=== PATIENT | female | born 1950 | race African-American/Black ===

== ENCOUNTER 2016-04-12 06:28 | Inpatient (IN) | payer BC, OTHER ==
--- NOTE | 2016-04-12 07:53 | PDOC ---
History of Present Illness <Kaycee Nur - Last Filed: 04/12/16 13:48> - History of Present Illness Initial Comments: 04/12/16 11:56 Patient is a 65 year old female with a significant past medical history of CHF, HTN, HLD, DM, stent placement x1, and hypothyroidism, nephrolithiasis who presents to the ED for right lower back pain that began suddenly yesterday while she was standing up cooking. Patient describes the pain as sharp, nonradiating a and constant with a severity of 8. Patient does admit to having a chronic history of back pain but has never followed up with a specialist because she states the pain went away. She denies chest pain, shortness of breath, palpitations She denies abdominal pain, nausea, vomiting, diarrhea She denies dizziness, headaches, acute visual changes PMHx: CHF, HTN, HLD, DM, stent placement x1, and hypothyroidism, nephrolithiasis PSHx:None Meds: Refer to ambulatory Allergies: NKDA Social: Smokes 3-4 black and mild a day. Denies alcohol and drug use PCP: Dr. Nestor Chang <Ibis Victoria - Last Filed: 04/12/16 14:12> - General Chief Complaint: Back Pain Stated Complaint: BACK PAIN Time Seen by Provider: 04/12/16 07:31 Past History <Kaycee Nur - Last Filed: 04/12/16 13:48> - Past Medical History Anemia: No Asthma: No Cancer: No Cardiac Disorders: Yes CVA: No COPD: No CHF: Yes (NO MEDS) Dementia: No Diabetes: Yes GI Disorders: Yes Disorders: Yes (KIDNEY STONES) HTN: Yes Hypercholesterolemia: Yes Liver Disease: No Seizures: No Thyroid Disease: Yes - Surgical History Abdominal Surgery: Yes (HERNIA SX A BABY) Appendectomy: No Cardiac Surgery: Yes (Multiple stents) Cholecystectomy: No Lung Surgery: No Neurologic Surgery: No Orthopedic Surgery: No - Immunization History Immunization Up to Date: Yes - Psycho/Social/Smoking Cessation Hx Anxiety: No Suicidal Ideation: No Smoking History: Current some day smoker Have you smoked in the past 12 months: No Number of Cigarettes Smoked Daily: 0 If you are a former smoker, when did you quit?: 5 Cigars Per Day: 5 Information on smoking cessation initiated: No Hx Alcohol Use: No Drug/Substance Use Hx: No Substance Use Type: None Hx Substance Use Treatment: No <Ibis Victoria - Last Filed: 04/12/16 14:12> - Past Medical History Allergies/Adverse Reactions: Allergies Allergy/AdvReac Type Severity Reaction Status Date / Time No Known Drug Allergies Allergy Verified 04/12/16 06:45 Home Medications: Ambulatory Orders Albuterol Sulfate Inhaler - [Ventolin HFA Inhaler -] 2 inh PO Q6H PRN 12/21/14 Amlodipine Besylate [Norvasc -] 5 mg PO DAILY 12/21/14 Atorvastatin Ca [Lipitor] 20 mg PO DAILY 12/21/14 Clopidogrel Bisulfate [Plavix -] 75 mg PO DAILY 12/21/14 Hydrochlorothiazide [Hctz -] 25 mg PO DAILY 12/21/14 Insulin Glargine,Hum.rec.anlog [Lantus Solostar PEN -] 50 units SQ HS 12/21/14 Levothyroxine [Synthroid -] 112 mcg PO DAILY 12/21/14 Ranolazine [Ranexa] 500 mg PO BID 12/21/14 Cyclobenzaprine HCl [Flexeril -] 10 mg PO TID PRN #21 tablet 09/08/15 Insulin Lispro [Humalog] 100 unit SQ ASDIR 04/12/16 Losartan Potassium [Cozaar] 100 mg PO DAILY 04/12/16 Review of Systems - Review of Systems Constitutional: No: Chills, Diaphoresis, Fever, Loss of Appetite HEENTM: No: Tearing, Ear Pain, Nose Pain, Throat Pain, Throat Swelling, Difficulty Swallowing Respiratory: Yes: Cough (chronic due to COPD). No: Shortness of Breath, SOB with Exertion Cardiac (ROS): No: Chest Pain, Edema, Lightheadedness, Palpitations ABD/GI: No: Nausea, Vomiting : No: Burning, Dysuria Musculoskeletal: Yes: Back Pain (right lower ). No: Muscle Weakness, Neck Pain Integumentary: No: Dryness, Erythema Neurological: No: Headache, Numbness, Paresthesia, Tremors, Weakness Psychiatric: No: Anxiety, Depression Endocrine: No: Intolerance to Cold, Intolerance to Heat Hematologic/Lymphatic: No: Anemia, Blood Clots <Ibis Victoria - Last Filed: 04/12/16 14:12> *Physical Exam - Vital Signs Last Vital Signs Temp Pulse Resp BP Pulse Ox 97.8 F 80 22 180/80 97 04/12/16 06:49 04/12/16 06:49 04/12/16 06:49 04/12/16 06:49 04/12/16 06:49 <Kaycee Nur - Last Filed: 04/12/16 13:48> - Vital Signs Last Vital Signs Temp Pulse Resp BP Pulse Ox 97.8 F 80 22 180/80 97 04/12/16 06:49 04/12/16 06:49 04/12/16 06:49 04/12/16 06:49 04/12/16 06:49 - Physical Exam General Appearance: Yes: Other (Awake, alert, oriented and in mild painful distress ) HEENT: positive: EOMI, VIGNESH, Normal ENT Inspection, TMs Normal, Pharynx Normal. negative: Tonsillar Exudate, Tonsillar Erythema, Rhinorrhea, Sinus Tenderness Neck: positive: Trachea midline Respiratory/Chest: positive: Lungs Clear, Normal Breath Sounds. negative: Decreased Breath Sounds, Wheezing Cardiovascular: positive: Regular Rhythm, Regular Rate Gastrointestinal/Abdominal: positive: Normal Bowel Sounds, Soft. negative: Distended, Rebound, Tenderness Musculoskeletal: positive: Normal Inspection, CVA Tenderness (R). negative: CVA Tenderness (L) Extremity: positive: Other (limited range of motion due to right back pain ) Integumentary: positive: Normal Color, Dry, Warm Neurologic: positive: Fully Oriented, Alert, Normal Mood/Affect, Normal Response , Motor Strength 5/5 <Ibis Victoria - Last Filed: 04/12/16 14:12> Heart Score/ECG Review - ECG Intrepretation Comment:: 04/12/16 11:27 ECG obtained at 11:11 Normal sinus at 69 bpm, incomplete right bundle branch block, borderline ECG <Kaycee Nur - Last Filed: 04/12/16 13:48> ED Treatment Course - LABORATORY CBC & Chemistry Diagram: 04/12/16 08:00 04/12/16 09:00 - ADDITIONAL ORDERS Additional order review: Laboratory Results 04/12/16 04/12/16 04/12/16 09:00 08:00 08:00 Sodium 141 Cancelled Potassium 3.8 Cancelled Chloride 108 H Cancelled Carbon Dioxide 27 Cancelled Anion Gap 6 L Cancelled BUN 11 Cancelled Creatinine 0.7 Cancelled Creat Clearance w eGFR > 60 Cancelled Random Glucose 131 H D Cancelled Calcium 9.7 Cancelled Total Bilirubin 0.5 D Cancelled AST 8 L D Cancelled ALT 18 Cancelled Alkaline Phosphatase 114 Cancelled Total Protein 7.2 Cancelled Albumin 3.5 Cancelled Urine Color Lt. yellow Urine Appearance Clear Urine pH 6.5 Ur Specific [place] <= 1.005 Urine Protein Negative Urine Glucose (UA) Negative Urine Ketones Negative Urine Blood Negative Urine Nitrite Negative Urine Bilirubin Negative Urine Urobilinogen 0.2 e.u/dl Ur Leukocyte Esterase Negative 04/12/16 08:00 RBC 5.01 MCV 93.1 MCHC 32.9 RDW 13.9 MPV 11.1 Neutrophils % 66.4 Lymphocytes % 22.8 D Monocytes % 7.4 Eosinophils % 2.1 D Basophils % 1.3 - RADIOLOGY Radiograph Interpretation: 04/12/16 13:49 Renal ultrasound as reviewed by Dr. Bain reports findings suspicious for non obstructing renal stones bilaterally. - Medications Given in the ED: ED Medications Discontinued Medications Generic Name Dose Route Start Last Admin Trade Name Reguloq PRN Reason Stop Dose Admin Diazepam 2 mg 04/12/16 08:02 04/12/16 08:03 Valium - PO 04/12/16 08:03 2 mg ONCE ONE Administration Ketorolac Tromethamine 10 mg 04/12/16 09:05 04/12/16 09:10 Toradol PO 04/12/16 09:06 10 mg ONCE ONE Administration Lorazepam 1 mg 04/12/16 08:00 04/12/16 08:03 Ativan - PO 04/12/16 08:01 1 mg ONCE ONE Administration Morphine Sulfate 15 mg 04/12/16 08:01 04/12/16 08:03 Ms Contin - PO 04/12/16 08:02 15 mg ONCE ONE Administration <Kaycee Nur - Last Filed: 04/12/16 13:48> - LABORATORY CBC & Chemistry Diagram: 04/12/16 08:00 04/12/16 09:00 <Ibis Victoria - Last Filed: 04/12/16 14:12> Medical Decision Making - Medical Decision Making 04/12/16 10:21 Microblog sent to [facility] for admission at 10:00, but instructed to call Phill. Phone call sent to Dr. Pollock at 10:05. Awaiting call back. 04/12/16 10:39 Second page sent to Dr. Pollock. 04/12/16 10:51 Dr. Pollock called back, patient accepted and admitted. <Kaycee Nur - Last Filed: 04/12/16 13:48> - Medical Decision Making 04/12/16 08:00 Patient is a 65 year old female who presents to the ED complaining of intractable right lower back pain that began yesterday suddenly yesterday while she was cooking. Differential Diagnosis include but not limited to nephrolithiasis, pyelonephritis, contusion, fracture, sprain. ED Course and Treatment: -CBC -CMP -U/A -Cardiac profile -MS Contin 15mg po -Valium 2mg 04/12/16 09:00 -CBC and CMP wnl -U/A negative -Toradol given for pain 04/12/16 10:00 -Patient continues to experience intractable back pain -Patient admitted to Dr. Pollock's services <Ibis Victoria - Last Filed: 04/12/16 14:12> *DC/Admit/Observation/Transfer - Attestations Scribe Attestion: 04/12/16 10:32 Documentation prepared by Kaycee Nur, acting as medical office assistant for Ibis Victoria MD/DO. <Kaycee Nur - Last Filed: 04/12/16 13:48> <Ibis Victoria - Last Filed: 04/12/16 14:12> Diagnosis at time of Disposition: Low back strain, Intractable pain - Referrals
--- NOTE | 2016-04-12 07:59 | PDOC ---
Attending Attestation - Resident Resident Name: Ibis Victoria - ED Attending Attestation I have performed the following: I have examined & evaluated the patient, The case was reviewed & discussed with the resident, I agree w/resident's findings & plan, Exceptions are as noted - HPI HPI: 04/12/16 07:56 The patient is a 65 year old female with chronic, intermittent low back pain who presents with right lower back pain that began yesterday after standing for a long perior of time when cooking. She denies new lower extremity weakness or paresthesias. No new bladder or bowel incontinence. No rash. No fever. No urinary symptoms. - Physicial Exam PE: 04/12/16 07:57 Vitals noted No lower extremity weakness or paresthesias Normoreflexic in the bilateral lower extremities She has right lower lumbar paraspinal muscle tenderness - Medical Decision Making 04/12/16 07:58 Will obtain labs, UA 04/12/16 09:48 The patient continues to be in severe pain She states that she is unable to transfer from the stretcher to a chair, or to standing Will place on observation for further evaluation and treatment of her intractable back pain Will obtain ultrasound to rule out hydronephrosis Clinical impression: Intractable back pain Case discussed in detail with admitting provider including history, physical exam and ancillary studies. Admitting physician has assumed care for the patient, will follow all pending diagnostics and will complete the evaluation and treatment. Discharge Disposition - Diagnosis Low back strain, Intractable pain - Discharge Dispostion Last Admission D/C Date: 04/30/04 Admit: Yes
[2016-04-12] MEDS ORDERED: LORazepam 1 MG TABLET PO ONE (08:00)
[2016-04-12] MEDS ORDERED: morphine SO4 SUSTAINED ACTING 15 MG TABLET.SA PO ONE (08:01)
[2016-04-12] MEDS ORDERED: diazePAM 2 MG TABLET PO ONE (08:02)
[2016-04-12] MEDS ORDERED: morphine SO4 SUSTAINED ACTING 15 MG TABLET.SA ONE (08:05)
[2016-04-12] MEDS ORDERED: diazePAM 2 MG TABLET ONE (08:05)
[2016-04-12 08:25] LABS: BASOPHIL 1.3 % (0-2.0); EOSINOPHIL 2.1 % (0-4.5); MCH 30.6 pg (25.7-33.7); MCHC 32.9 g/dl (32.0-36.0); MEAN CELL VOLUME 93.1 fl (80-96); MEAN PLT VOLUME 11.1 fl (7.5-11.1); NEUTROPHILS 66.4 % (42.8-82.8); PLATELET COUNT 263 K/MM3 (134-434); RDW 13.9 % (11.6-15.6); WHITE BLOOD COUNT 11.8 K/mm3 (4.0-10.0)
[2016-04-12 08:26] LABS: PH,URINE 6.5 (5.0-8.0); URINE APPEARANCE CLEAR; URINE BILIRUBIN NEGATIVE (NEGATIVE); URINE BLOOD NEGATIVE (NEGATIVE); URINE COLOR LT. YELLOW; URINE GLUCOSE (UA) NEGATIVE (NEGATIVE); URINE KETONE NEGATIVE (NEGATIVE); URINE LEUK ESTERASE NEGATIVE (NEGATIVE); URINE NITRITE NEGATIVE (NEGATIVE); URINE PROTEIN NEGATIVE (NEGATIVE); URINE UROBILINOGEN 0.2 E.U/dl E.U./dl (0.2-1.0)
[2016-04-12] MEDS ORDERED: KETOROLAC TROMETHAMINE 10 MG TABLET PO ONE (09:05)
[2016-04-12] MEDS ORDERED: KETOROLAC TROMETHAMINE 30 MG/1 ML VIAL ONE (09:12)
[2016-04-12 09:38] LABS: ALBUMIN 3.5 g/dl (3.4-5.0); ALK PHOS 114 U/L (45-117); ANION GAP 6 (8-16); BILIRUBIN,TOTAL 0.5 mg/dL (0.2-1.0); CALCIUM 9.7 mg/dL (8.5-10.1); CO2 27 mmol/L (21-32); CREATININE 0.7 mg/dL (0.55-1.02); GLUCOSE,RANDOM 131 mg/dL (74-106); SGOT/AST 8 U/L (15-37); SGPT/ALT 18 U/L (12-78); TOT PROT 7.2 g/dl (6.4-8.2)
[2016-04-12] MEDS ORDERED: ONDANSETRON 4 MG/2 ML VIAL IVPB ONE (12:24)
--- NOTE | 2016-04-12 16:35 | EKG ---
Test Reason : Blood Pressure : / mmHG Vent. Rate : 069 BPM Atrial Rate : 069 BPM P-R Int : 166 ms QRS Dur : 092 ms QT Int : 418 ms P-R-T Axes : 000 -06 036 degrees QTc Int : 447 ms POOR DATA QUALITY, INTERPRETATION MAY BE ADVERSELY AFFECTED NORMAL SINUS RHYTHM INCOMPLETE RIGHT BUNDLE BRANCH BLOCK BORDERLINE ECG WHEN COMPARED WITH ECG OF 19-OCT-2015 05:18, NO SIGNIFICANT CHANGE WAS FOUND Confirmed by ANGELA DEGROOT, BECK ([id number]) on 04/12/2016 4:34:59 PM Referred By: Confirmed By:BECK MILLER MD
--- NOTE | 2016-04-12 16:52 | HP ---
Admitting History and Physical - Primary Care Physician PCP: Randa Pollock - Admission Chief Complaint: back pain History of Present Illness: Patient is a 65 year old female with a significant past medical history of CHF, HTN, HLD, DM, stent placement x1, and hypothyroidism, nephrolithiasis who presents to the ED for right lower back pain that began suddenly yesterday while she was standing up cooking. Patient describes the pain as sharp, nonradiating a and constant with a severity of 8. Patient does admit to having a chronic history of back pain but has never followed up with a specialist because she states the pain went away. - Past Medical History Cardiovascular: Yes: HTN, Hyperlipdemia Pulmonary: Yes: Asthma Endocrine: Yes: Diabetes Mellitus - Smoking History Smoking history: Current some day smoker Have you smoked in the past 12 months: No Aproximately how many cigarettes per day: 0 If you are a former smoker, when did you quit?: 5 - Alcohol/Substance Use Hx Alcohol Use: No Home Medications - Allergies Allergies/Adverse Reactions: Allergies Allergy/AdvReac Type Severity Reaction Status Date / Time No Known Drug Allergies Allergy Verified 04/12/16 06:45 - Home Medications Home Medications: Ambulatory Orders Albuterol Sulfate Inhaler - [Ventolin HFA Inhaler -] 2 inh PO Q6H PRN 12/21/14 Amlodipine Besylate [Norvasc -] 5 mg PO DAILY 12/21/14 Atorvastatin Ca [Lipitor] 20 mg PO DAILY 12/21/14 Clopidogrel Bisulfate [Plavix -] 75 mg PO DAILY 12/21/14 Hydrochlorothiazide [Hctz -] 25 mg PO DAILY 12/21/14 Insulin Glargine,Hum.rec.anlog [Lantus Solostar PEN -] 50 units SQ HS 12/21/14 Levothyroxine [Synthroid -] 112 mcg PO DAILY 12/21/14 Ranolazine [Ranexa] 500 mg PO BID 12/21/14 Cyclobenzaprine HCl [Flexeril -] 10 mg PO TID PRN #21 tablet 09/08/15 Insulin Lispro [Humalog] 100 unit SQ ASDIR 04/12/16 Losartan Potassium [Cozaar] 100 mg PO DAILY 04/12/16 Physical Examination Vital Signs: Vital Signs Temperature 97.8 F 04/12/16 06:49 Pulse Rate 65 04/12/16 12:38 Respiratory Rate 18 04/12/16 12:38 Blood Pressure 107/58 04/12/16 12:38 O2 Sat by Pulse Oximetry (%) 94 L 04/12/16 12:38 Constitutional: Yes: No Distress HENT: Yes: Atraumatic Neck: Yes: Supple Cardiovascular: Yes: Regular Rate and Rhythm Respiratory: Yes: CTA Bilaterally Gastrointestinal: Yes: Normal Bowel Sounds Extremities: Yes: WNL Neurological: Yes: Alert, Oriented Problem List - Problems (1) Intractable pain Code(s): R52 - PAIN, UNSPECIFIED (2) High blood pressure Code(s): I10 - ESSENTIAL (PRIMARY) HYPERTENSION (3) Diabetes Code(s): E11.9 - TYPE 2 DIABETES MELLITUS WITHOUT COMPLICATIONS (4) Hyperlipidemia Code(s): E78.5 - HYPERLIPIDEMIA, UNSPECIFIED Assessment/Plan Laboratory Tests 04/12/16 04/12/16 04/12/16 08:00 08:00 08:00 WBC 11.8 H RBC 5.01 Hgb 15.3 Hct 46.6 H MCV 93.1 MCHC 32.9 RDW 13.9 Plt Count 263 D MPV 11.1 Neutrophils % 66.4 Lymphocytes % 22.8 D Monocytes % 7.4 Eosinophils % 2.1 D Basophils % 1.3 Sodium Cancelled Potassium Cancelled Chloride Cancelled Carbon Dioxide Cancelled Anion Gap Cancelled BUN Cancelled Creatinine Cancelled Creat Clearance w eGFR Cancelled POC Glucometer Random Glucose Cancelled Calcium Cancelled Total Bilirubin Cancelled AST Cancelled ALT Cancelled Alkaline Phosphatase Cancelled Total Protein Cancelled Albumin Cancelled Urine Color Lt. yellow Urine Appearance Clear Urine pH 6.5 Ur Specific [place] <= 1.005 Urine Protein Negative Urine Glucose (UA) Negative Urine Ketones Negative Urine Blood Negative Urine Nitrite Negative Urine Bilirubin Negative Urine Urobilinogen 0.2 e.u/dl Ur Leukocyte Esterase Negative 04/12/16 04/12/16 09:00 12:34 WBC RBC Hgb Hct MCV MCHC RDW Plt Count MPV Neutrophils % Lymphocytes % Monocytes % Eosinophils % Basophils % Sodium 141 Potassium 3.8 Chloride 108 H Carbon Dioxide 27 Anion Gap 6 L BUN 11 Creatinine 0.7 Creat Clearance w eGFR > 60 POC Glucometer [phone] Random Glucose 131 H D Calcium 9.7 Total Bilirubin 0.5 D AST 8 L D ALT 18 Alkaline Phosphatase 114 Total Protein 7.2 Albumin 3.5 Urine Color Urine Appearance Urine pH Ur Specific [place] Urine Protein Urine Glucose (UA) Urine Ketones Urine Blood Urine Nitrite Urine Bilirubin Urine Urobilinogen Ur Leukocyte Esterase Active Medications Generic Name Dose Route Start Last Admin Trade Name Freq PRN Reason Stop Dose Admin Amlodipine Besylate 5 mg 04/12/16 17:00 Norvasc - PO DAILY [facility] Clopidogrel Bisulfate 75 mg 04/12/16 17:00 Plavix - PO DAILY [facility] Hydrochlorothiazide 25 mg 04/12/16 17:00 Hctz - PO DAILY [facility] Hydromorphone HCl 1 mg 04/12/16 16:53 Dilaudid Injection - IVPB Q3H PRN PAIN Levothyroxine Sodium 112 mcg 04/12/16 17:00 Synthroid - PO DAILY [facility] Non-Formulary Medication 50 units 04/12/16 22:00 Insulin Glargine,Hum.Rec.Anlog SQ HS [facility] Non-Formulary Medication 100 mg 04/12/16 17:00 Losartan Potassium [Cozaar] PO DAILY [facility] Ranolazine 500 mg 04/12/16 22:00 Ranexa - PO BID [facility] 1.severe back pain admit ivpain meds pt eval will get pain mangement involve 2.dm on insulin and bgms 3.htn on meds 4.hypothyroid on meds dvt ppx
[2016-04-12] MEDS ORDERED: LEVOTHYROXINE NA 112 MCG TABLET (FP) PO SCH (17:00)
[2016-04-12] MEDS ORDERED: HYDROmorphone HCL CARPU-JECT 1 MG/1 ML DISP.SYRIN ONE (17:18)
[2016-04-12] MEDS: HYDROmorphone HCL CARPU-JECT 1 MG/1 ML DISP.SYRIN IVPB PRN ×2 (18:00→21:20)
[2016-04-12] MEDS ORDERED: HYDROCHLOROTHIAZIDE 25 MG TABLET (FP) ONE (18:07)
[2016-04-12] MEDS ORDERED: amLODIPine BESYLATE 5 MG TABLET (FP) ONE (18:07)
[2016-04-12] MEDS ORDERED: LOSARTAN POTASSIUM 25 MG TABLET ONE (18:07)
[2016-04-12] MEDS ORDERED: CLOPIDOGREL BISULFATE 75 MG TABLET (FP) ONE (18:08)
[2016-04-12] MEDS ORDERED: ONDANSETRON 4 MG/2 ML VIAL ONE (18:11)
[2016-04-12] MEDS: LEVOTHYROXINE NA 112 MCG TABLET (FP) PO SCH (19:05)
[2016-04-12] MEDS: HYDROCHLOROTHIAZIDE 25 MG TABLET (FP) PO SCH (19:05)
[2016-04-12] MEDS: CLOPIDOGREL BISULFATE 75 MG TABLET (FP) PO SCH (19:05)
[2016-04-12] MEDS: amLODIPine BESYLATE 5 MG TABLET (FP) PO SCH (19:05)
[2016-04-12] MEDS: LOSARTAN POTASSIUM 50 MG TABLET (FP) PO SCH (19:05)
[2016-04-12 19:13] VITALS: BMI 39.2
[2016-04-13] MEDS: INSULIN DETEMIR 100 UNITS/ML MDV SQ SCH ×2 (00:09→21:51)
[2016-04-13] MEDS: RANOLAZINE E.R. 500 MG TABLET (FP) PO SCH ×3 (00:27→21:53)
[2016-04-13] MEDS: CLOPIDOGREL BISULFATE 75 MG TABLET (FP) PO SCH (10:02)
[2016-04-13] MEDS ORDERED: amLODIPine BESYLATE 5 MG TABLET (FP) ONE (10:04)
[2016-04-13] MEDS ORDERED: HYDROCHLOROTHIAZIDE 25 MG TABLET (FP) ONE (10:05)
[2016-04-13] MEDS ORDERED: CLOPIDOGREL BISULFATE 75 MG TABLET (FP) ONE (10:05)
[2016-04-13] MEDS: amLODIPine BESYLATE 5 MG TABLET (FP) PO SCH (12:01)
[2016-04-13] MEDS: LOSARTAN POTASSIUM 50 MG TABLET (FP) PO SCH (12:01)
[2016-04-13] MEDS: LEVOTHYROXINE NA 112 MCG TABLET (FP) PO SCH (12:01)
[2016-04-13] MEDS: HYDROCHLOROTHIAZIDE 25 MG TABLET (FP) PO SCH (12:01)
[2016-04-13] MEDS: HYDROmorphone HCL CARPU-JECT 1 MG/1 ML DISP.SYRIN IVPB PRN ×3 (12:07→22:56)
[2016-04-13] MEDS ORDERED: HYDROmorphone HCL CARPU-JECT 1 MG/1 ML DISP.SYRIN ONE (12:08)
--- NOTE | 2016-04-13 15:23 | CONSULT ---
Consult - text type - Consultation Consultation Note: CC: Low back pain HPI: This is a 65 yo woman with history of chronic lower back pain that had improved without any treatments. She had an acute exacerbation of her pain while she was standing in her kitchen and was brought to the hospital. She has history of kidney stones and has had prior flank pain but reports this pain as being differnt than her prior episodes of flank pain. PMH: HTN, CAD, DM, Hypothyroidism, Nephrolithiasis A: 1. Acute on chronic LBP P: 1. Recommend MRI L spine. 2. Continue IV Pain meds for now. She may benefit from an epidural steroid injection, based on MRI findings. 3. She is currently on Plavix, which needs to be held for 7 days prior to spine procedures. If her pain improves with IV pain meds, an epidural can be done on outpt basis. 4. thank you for the consult. will follow.
[2016-04-13] MEDS ORDERED: PNEUMOC 13-VAL CONJ-DIP CRM/PF 0.5 ML DISP.SYRIN IM ONE (16:00)
[2016-04-13] MEDS: INSULIN SLIDING SCALE (NOVOLOG) 1 VIAL SQ SCH ×2 (17:54→21:52)
--- NOTE | 2016-04-13 19:42 | PN ---
Progress Note, Physician - Current Medication List Current Medications: Active Medications Amlodipine Besylate (Norvasc -) 5 mg PO DAILY [facility] Last Admin: 04/13/16 12:01 Dose: 5 mg Clopidogrel Bisulfate (Plavix -) 75 mg PO DAILY [facility] Last Admin: 04/13/16 10:02 Dose: 75 mg Hydrochlorothiazide (Hctz -) 25 mg PO DAILY [facility] Last Admin: 04/13/16 12:01 Dose: 25 mg Hydromorphone HCl (Dilaudid Injection -) 1 mg IVPB Q3H PRN PRN Reason: PAIN Last Admin: 04/13/16 18:20 Dose: 1 mg Insulin Aspart (Novolog Vial Sliding Scale -) 1 vial SQ ACHS [facility] PRN Reason: Protocol Last Admin: 04/13/16 17:54 Dose: 4 units Insulin Detemir (Levemir Vial) 50 units SQ HS [facility] Last Admin: 04/13/16 00:09 Dose: 50 unit Levothyroxine Sodium (Synthroid -) 112 mcg PO DAILY@0700 [facility] Last Admin: 04/13/16 12:01 Dose: 112 mcg Losartan Potassium (Cozaar -) 100 mg PO DAILY [facility] Last Admin: 04/13/16 12:01 Dose: 100 mg Nystatin (Nystop Powder -) 1 applic TP BID [facility] Ranolazine (Ranexa -) 500 mg PO BID [facility] Last Admin: 04/13/16 10:02 Dose: 500 mg - Objective Vital Signs: Vital Signs Temperature 98.2 F 04/13/16 18:16 Pulse Rate 72 04/13/16 18:16 Respiratory Rate 20 04/13/16 18:16 Blood Pressure 143/68 04/13/16 18:16 O2 Sat by Pulse Oximetry (%) 98 04/13/16 15:00
[2016-04-13] MEDS ORDERED: INSULIN (NOVOLOG) ASPART 100 UNITS/ML 10ML VIAL ONE (21:27)
[2016-04-13] MEDS ORDERED: PT OWN MED DRAWER 7, Y5N ONE (21:29)
[2016-04-13] MEDS: NYSTATIN POWDER 100,000 UNITS/GM - 15 GM TOPICAL POWDER TP SCH (21:54)
[2016-04-14] MEDS: INSULIN SLIDING SCALE (NOVOLOG) 1 VIAL SQ SCH ×4 (06:10→21:24)
[2016-04-14] MEDS: CYCLOBENZAPRINE HCL 10 MG TABLET (FP) PO PRN ×2 (06:12→21:25)
[2016-04-14] MEDS: LEVOTHYROXINE NA 112 MCG TABLET (FP) PO SCH (06:12)
[2016-04-14 08:01] LABS: BASOPHIL 0.8 % (0-2.0); EOSINOPHIL 3.1 % (0-4.5); MCHC 33.5 g/dl (32.0-36.0); MEAN CELL VOLUME 92.6 fl (80-96); MEAN PLT VOLUME 10.8 fl (7.5-11.1); NEUTROPHILS 69.5 % (42.8-82.8); PLATELET COUNT 229 K/MM3 (134-434); RDW 13.5 % (11.6-15.6); WHITE BLOOD COUNT 10.3 K/mm3 (4.0-10.0)
[2016-04-14] MEDS: HYDROmorphone HCL CARPU-JECT 1 MG/1 ML DISP.SYRIN IVPB PRN ×2 (09:02→16:05)
[2016-04-14] MEDS ORDERED: PT OWN MED DRAWER 7, Y5N ONE (09:43)
[2016-04-14 10:11] LABS: ALBUMIN 3.3 g/dl (3.4-5.0); ALK PHOS 106 U/L (45-117); ANION GAP 10 (8-16); BILIRUBIN,TOTAL 0.8 mg/dL (0.2-1.0); CALCIUM 9.8 mg/dL (8.5-10.1); CO2 27 mmol/L (21-32); CREATININE 0.7 mg/dL (0.55-1.02); GLUCOSE,RANDOM 177 mg/dL (74-106); SGOT/AST 9 U/L (15-37); SGPT/ALT 15 U/L (12-78); TOT PROT 6.9 g/dl (6.4-8.2)
[2016-04-14] MEDS: amLODIPine BESYLATE 5 MG TABLET (FP) PO SCH (10:11)
[2016-04-14] MEDS: CLOPIDOGREL BISULFATE 75 MG TABLET (FP) PO SCH (10:11)
[2016-04-14] MEDS: RANOLAZINE E.R. 500 MG TABLET (FP) PO SCH ×2 (10:11→21:24)
[2016-04-14] MEDS: LOSARTAN POTASSIUM 50 MG TABLET (FP) PO SCH (10:11)
[2016-04-14] MEDS: HYDROCHLOROTHIAZIDE 25 MG TABLET (FP) PO SCH (10:11)
[2016-04-14] MEDS: NYSTATIN POWDER 100,000 UNITS/GM - 15 GM TOPICAL POWDER TP SCH ×2 (10:40→21:23)
--- NOTE | 2016-04-14 21:06 | PN ---
Progress Note, Physician History of Present Illness: Pt w/ intractable back pain and not able to stand - Current Medication List Current Medications: Active Medications Amlodipine Besylate (Norvasc -) 5 mg PO DAILY [facility] Last Admin: 04/14/16 10:11 Dose: 5 mg Clopidogrel Bisulfate (Plavix -) 75 mg PO DAILY [facility] Last Admin: 04/14/16 10:11 Dose: 75 mg Cyclobenzaprine HCl (Flexeril -) 10 mg PO TID PRN PRN Reason: MUSCLE SPASMS Last Admin: 04/14/16 06:12 Dose: 10 mg Hydrochlorothiazide (Hctz -) 25 mg PO DAILY [facility] Last Admin: 04/14/16 10:11 Dose: 25 mg Insulin Aspart (Novolog Vial Sliding Scale -) 1 vial SQ ACHS [facility] PRN Reason: Protocol Last Admin: 04/14/16 16:12 Dose: 8 units Insulin Detemir (Levemir Vial) 50 units SQ HS [facility] Last Admin: 04/13/16 21:51 Dose: 50 unit Levothyroxine Sodium (Synthroid -) 112 mcg PO DAILY@0700 [facility] Last Admin: 04/14/16 06:12 Dose: 112 mcg Losartan Potassium (Cozaar -) 100 mg PO DAILY [facility] Last Admin: 04/14/16 10:11 Dose: 100 mg Nystatin (Nystop Powder -) 1 applic TP BID [facility] Last Admin: 04/14/16 10:40 Dose: 1 applic Ranolazine (Ranexa -) 500 mg PO BID [facility] Last Admin: 04/14/16 10:11 Dose: 500 mg Tramadol HCl (Ultram -) 50 mg PO Q8H PRN PRN Reason: PAIN - Objective Vital Signs: Vital Signs Temperature 97.8 F 04/14/16 19:12 Pulse Rate 75 04/14/16 19:12 Respiratory Rate 20 04/14/16 19:12 Blood Pressure 153/71 04/14/16 19:12 O2 Sat by Pulse Oximetry (%) 91 L 04/14/16 09:00 Constitutional: Yes: Well Nourished Neck: Yes: Supple Cardiovascular: Yes: WNL, Regular Rate and Rhythm Respiratory: Yes: WNL, Regular, CTA Bilaterally Gastrointestinal: Yes: WNL, Normal Bowel Sounds, Soft Labs: CBC, BMP 04/14/16 06:00 04/14/16 06:00 Problem List - Problems (1) Intractable pain Assessment/Plan: Pt seen by pain management and recommended epidural as outpt However pt is having trouble staqnding due to pain CT LS spine pending Change to tramadol Cont flexeril DC rosmery Spoke to pt at length about dc planning for am Code(s): R52 - PAIN, UNSPECIFIED (2) High blood pressure Assessment/Plan: Cont norvasc/hctz/losartan BP stable Code(s): I10 - ESSENTIAL (PRIMARY) HYPERTENSION (3) Diabetes Assessment/Plan: Cont levemir/sliding scale w/ insulooin Code(s): E11.9 - TYPE 2 DIABETES MELLITUS WITHOUT COMPLICATIONS (4) Hypothyroidism Assessment/Plan: Cont levothyroxine Code(s): E03.9 - HYPOTHYROIDISM, UNSPECIFIED
[2016-04-14] MEDS ORDERED: INSULIN (NOVOLOG) ASPART 100 UNITS/ML 10ML VIAL ONE (21:07)
[2016-04-14] MEDS: INSULIN DETEMIR 100 UNITS/ML MDV SQ SCH (21:23)
[2016-04-14] MEDS: traMADol HCL 50 MG TABLET PO PRN (21:24)
[2016-04-15] MEDS: traMADol HCL 50 MG TABLET PO PRN ×2 (06:59→16:43)
[2016-04-15] MEDS: CYCLOBENZAPRINE HCL 10 MG TABLET (FP) PO PRN ×2 (07:00→22:08)
[2016-04-15] MEDS: LEVOTHYROXINE NA 112 MCG TABLET (FP) PO SCH (07:00)
[2016-04-15] MEDS: INSULIN SLIDING SCALE (NOVOLOG) 1 VIAL SQ SCH ×4 (07:04→22:08)
[2016-04-15 07:26] LABS: BASOPHIL 0.8 % (0-2.0); EOSINOPHIL 3.5 % (0-4.5); MCH 30.8 pg (25.7-33.7); MCHC 33.3 g/dl (32.0-36.0); MEAN CELL VOLUME 92.5 fl (80-96); MEAN PLT VOLUME 10.4 fl (7.5-11.1); NEUTROPHILS 66.5 % (42.8-82.8); PLATELET COUNT 250 K/MM3 (134-434); RDW 13.5 % (11.6-15.6); WHITE BLOOD COUNT 9.4 K/mm3 (4.0-10.0)
[2016-04-15 07:58] LABS: ALBUMIN 3.1 g/dl (3.4-5.0); ANION GAP 2 (8-16); CALCIUM 9.6 mg/dL (8.5-10.1); CO2 30 mmol/L (21-32); CREATININE 0.8 mg/dL (0.55-1.02); GLUCOSE,RANDOM 136 mg/dL (74-106); SGOT/AST 7 U/L (15-37); SGPT/ALT 15 U/L (12-78)
[2016-04-15 08:00] LABS: ALK PHOS 102 U/L (45-117); BILIRUBIN,TOTAL 0.7 mg/dL (0.2-1.0); TOT PROT 6.7 g/dl (6.4-8.2)
[2016-04-15] MEDS: LOSARTAN POTASSIUM 50 MG TABLET (FP) PO SCH (10:50)
[2016-04-15] MEDS: NYSTATIN POWDER 100,000 UNITS/GM - 15 GM TOPICAL POWDER TP SCH ×2 (10:55→22:09)
[2016-04-15] MEDS: RANOLAZINE E.R. 500 MG TABLET (FP) PO SCH ×2 (11:15→22:08)
[2016-04-15] MEDS: HYDROCHLOROTHIAZIDE 25 MG TABLET (FP) PO SCH (11:16)
[2016-04-15] MEDS: amLODIPine BESYLATE 5 MG TABLET (FP) PO SCH (11:16)
[2016-04-15] MEDS: CLOPIDOGREL BISULFATE 75 MG TABLET (FP) PO SCH (11:16)
--- NOTE | 2016-04-15 21:53 | PN ---
Progress Note, Physician History of Present Illness: No new change - Current Medication List Current Medications: Active Medications Amlodipine Besylate (Norvasc -) 5 mg PO DAILY [facility] Last Admin: 04/15/16 11:16 Dose: 5 mg Clopidogrel Bisulfate (Plavix -) 75 mg PO DAILY [facility] Last Admin: 04/15/16 11:16 Dose: 75 mg Cyclobenzaprine HCl (Flexeril -) 10 mg PO TID PRN PRN Reason: MUSCLE SPASMS Last Admin: 04/15/16 07:00 Dose: 10 mg Hydrochlorothiazide (Hctz -) 25 mg PO DAILY [facility] Last Admin: 04/15/16 11:16 Dose: 25 mg Insulin Aspart (Novolog Vial Sliding Scale -) 1 vial SQ ACHS [facility] PRN Reason: Protocol Last Admin: 04/15/16 16:43 Dose: 4 units Insulin Detemir (Levemir Vial) 50 units SQ HS [facility] Last Admin: 04/14/16 21:23 Dose: 50 unit Levothyroxine Sodium (Synthroid -) 112 mcg PO DAILY@0700 [facility] Last Admin: 04/15/16 07:00 Dose: 112 mcg Losartan Potassium (Cozaar -) 100 mg PO DAILY [facility] Last Admin: 04/15/16 10:50 Dose: 100 mg Nystatin (Nystop Powder -) 1 applic TP BID [facility] Last Admin: 04/15/16 10:55 Dose: 1 applic Ranolazine (Ranexa -) 500 mg PO BID [facility] Last Admin: 04/15/16 11:15 Dose: 500 mg Tramadol HCl (Ultram -) 50 mg PO Q8H PRN PRN Reason: PAIN Last Admin: 04/15/16 16:43 Dose: 50 mg - Objective Vital Signs: Vital Signs Temperature 98.4 F 04/15/16 17:54 Pulse Rate 72 04/15/16 17:54 Respiratory Rate 18 04/15/16 17:54 Blood Pressure 149/58 04/15/16 17:54 O2 Sat by Pulse Oximetry (%) 94 L 04/15/16 09:00 Constitutional: Yes: Well Nourished Neck: Yes: Supple Cardiovascular: Yes: WNL, Regular Rate and Rhythm Respiratory: Yes: WNL, Regular, CTA Bilaterally Gastrointestinal: Yes: WNL, Normal Bowel Sounds, Soft Labs: CBC, BMP 04/15/16 06:00 04/15/16 06:00 Problem List - Problems (1) Intractable pain Assessment/Plan: Pt seen by pain management and recommended epidural as outpt Long d/w pt abhout dc planning for am and follow up as outpt CT LS spine pending Change to tramadol Cont flexeril DC dilaudid PT eval Code(s): R52 - PAIN, UNSPECIFIED (2) High blood pressure Assessment/Plan: Cont norvasc/hctz/losartan BP stable Code(s): I10 - ESSENTIAL (PRIMARY) HYPERTENSION (3) Diabetes Assessment/Plan: Cont levemir/sliding scale w/ insulooin Code(s): E11.9 - TYPE 2 DIABETES MELLITUS WITHOUT COMPLICATIONS (4) Hypothyroidism Assessment/Plan: Cont levothyroxine Code(s): E03.9 - HYPOTHYROIDISM, UNSPECIFIED
[2016-04-15] MEDS: INSULIN DETEMIR 100 UNITS/ML MDV SQ SCH (22:09)
[2016-04-16] MEDS: traMADol HCL 50 MG TABLET PO PRN (02:02)
[2016-04-16 05:59] VITALS: TEMP 97.9
[2016-04-16] MEDS: CYCLOBENZAPRINE HCL 10 MG TABLET (FP) PO PRN (06:09)
[2016-04-16] MEDS: LEVOTHYROXINE NA 112 MCG TABLET (FP) PO SCH (06:10)
[2016-04-16] MEDS: INSULIN SLIDING SCALE (NOVOLOG) 1 VIAL SQ SCH ×2 (06:12→12:45)
[2016-04-16] MEDS ORDERED: PT OWN MED DRAWER 7, Y5N ONE (09:24)
[2016-04-16] MEDS: LOSARTAN POTASSIUM 50 MG TABLET (FP) PO SCH (09:33)
[2016-04-16] MEDS: amLODIPine BESYLATE 5 MG TABLET (FP) PO SCH (09:34)
[2016-04-16] MEDS: HYDROCHLOROTHIAZIDE 25 MG TABLET (FP) PO SCH (09:34)
[2016-04-16] MEDS: CLOPIDOGREL BISULFATE 75 MG TABLET (FP) PO SCH (09:34)
[2016-04-16] MEDS: RANOLAZINE E.R. 500 MG TABLET (FP) PO SCH (09:34)
[2016-04-16 13:30] VITALS: BP 147/60; PULSE 78
[2016-04-16] MEDS: NYSTATIN POWDER 100,000 UNITS/GM - 15 GM TOPICAL POWDER TP SCH (13:33)
== END 2016-04-16 14:53 | disposition home or self-care (01) | DRG 552 ==
LOC: JER 06:28 → JERBED 10:10 → OBSVTOIN 16:54 → J7W 04-13 12:46
PROVIDERS: ADMIT Internal Medicine; ATTEND Internal Medicine
DX: M54.5 Low back pain (principal); E78.5 Hyperlipidemia, unspecified; E03.9 Hypothyroidism, unspecified; E11.9 Type 2 diabetes mellitus without complications; N20.0 Calculus of kidney; J45.909 Unspecified asthma, uncomplicated; F17.200 Nicotine dependence, unspecified, uncomplicated; I10 Essential (primary) hypertension; I25.10 Atherosclerotic heart disease of native coronary artery without angina pectoris; Z95.5 Presence of coronary angioplasty implant and graft
CPT/HCPCS: 36415; 72131-TC; 76775-TC; 80053; 81003; 85025; 87086; 90670; 93005; 93010; 99285-25; G0378

== ENCOUNTER 2016-11-26 12:07 | Inpatient (IN) | payer BC, OTHER ==
[2016-11-26] MEDS ORDERED: ACETAMINOPHEN 500 MG TABLET (FP) PO ONE (14:11)
[2016-11-26 14:28] LABS: BASOPHIL 1.3 % (0-2.0); EOSINOPHIL 1.2 % (0-4.5); MCH 31.1 pg (25.7-33.7); MCHC 33.5 g/dl (32.0-36.0); MEAN CELL VOLUME 92.8 fl (80-96); MEAN PLT VOLUME 10.7 fl (7.5-11.1); PLATELET COUNT 257 K/MM3 (134-434); RDW 13.7 % (11.6-15.6); WHITE BLOOD COUNT 11.5 K/mm3 (4.0-10.0)
[2016-11-26 14:39] LABS: INR 0.99 (0.82-1.09); PROTHROMBIN TIME (PATIENT) 10.9 SEC (9.98-11.88)
[2016-11-26 14:41] LABS: ACTIVATED PTT 34.1 SECONDS (26.9-34.4)
[2016-11-26 14:55] LABS: ALBUMIN 3.5 g/dl (3.4-5.0); ANION GAP 7 (8-16); BILIRUBIN,TOTAL 0.6 mg/dL (0.2-1.0); CALCIUM 9.6 mg/dL (8.5-10.1); CO2 27 mmol/L (21-32); CREATININE 0.7 mg/dL (0.55-1.02); GLUCOSE,RANDOM 172 mg/dL (74-106); SGPT/ALT 14 U/L (12-78)
[2016-11-26 14:59] LABS: ALK PHOS 94 U/L (45-117); TOT PROT 7.2 g/dl (6.4-8.2); TROPONIN I 0.03 ng/ml (0.00-0.05)
[2016-11-26 15:01] LABS: SGOT/AST 11 U/L (15-37)
[2016-11-26 15:02] LABS: CPK 108 IU/L (26-192)
[2016-11-26] MEDS ORDERED: ACETAMINOPHEN 325 MG TABLET (FP) ONE (15:26)
--- NOTE | 2016-11-26 15:58 | PDOC ---
History of Present Illness <Jillian Schaeffer - Last Filed: 11/26/16 17:48> - History of Present Illness Initial Comments: 11/26/16 15:57 "The patient is a 66 year old female, with a significant past medical history of HTN, HLD, CHF, CAD, Hypothyroidism, GERD, DM who presents to the emergency department with chest tightness today. Patient states her chest discomfort began this morning and describes it as a squeezing, pressure-like sensation radiating to her L shoulder. Patient has been experiencing intermittent chest tightness for the past month that is exacerbated upon exertion. Patient reports taking Extra strength Tylenol however denies any relief. Patient states this pain is similar to the pain she experienced before stent placement. Denies dizziness, nausea or vomiting. Patient denies fever, chills, abdominal pain, diarrhea or constipation. Patient denies dysuria, frequency, urgency or hematuria. Allergies: NKA Past surgical history: Multiple stents Social history: Current some day smoker PCP: Dr. Nestor Chang <Rikki Stone - Last Filed: 11/26/16 18:01> - General Chief Complaint: Chest Pain Stated Complaint: HEADACHE Time Seen by Provider: 11/26/16 14:01 Past History <Jillian Schaeffer - Last Filed: 11/26/16 17:48> - Past Medical History Anemia: No Asthma: No Cancer: No Cardiac Disorders: Yes CVA: No COPD: No CHF: Yes (NO MEDS) Dementia: No Diabetes: Yes GI Disorders: Yes Disorders: Yes (KIDNEY STONES) HTN: Yes Hypercholesterolemia: Yes Liver Disease: No Seizures: No Thyroid Disease: Yes - Surgical History Abdominal Surgery: Yes (HERNIA SX A BABY) Appendectomy: No Cardiac Surgery: Yes (Multiple stents) Cholecystectomy: No Lung Surgery: No Neurologic Surgery: No Orthopedic Surgery: No - Immunization History Immunization Up to Date: Yes - Psycho/Social/Smoking Cessation Hx Anxiety: No Suicidal Ideation: No Smoking History: Current some day smoker Have you smoked in the past 12 months: Yes Number of Cigarettes Smoked Daily: 3 If you are a former smoker, when did you quit?: 5 Cigars Per Day: 3 Information on smoking cessation initiated: No 'Breaking Loose' booklet given: 04/12/16 Hx Alcohol Use: No Drug/Substance Use Hx: No Substance Use Type: None Hx Substance Use Treatment: No <Rikki Stone - Last Filed: 11/26/16 18:01> - Past Medical History Allergies/Adverse Reactions: Allergies Allergy/AdvReac Type Severity Reaction Status Date / Time No Known Drug Allergies Allergy Verified 11/26/16 12:15 Home Medications: Ambulatory Orders Albuterol Sulfate Inhaler - [Ventolin HFA Inhaler -] 2 inh PO Q6H PRN 12/21/14 Atorvastatin Ca [Lipitor] 20 mg PO DAILY 12/21/14 Clopidogrel Bisulfate [Plavix -] 75 mg PO DAILY 12/21/14 Hydrochlorothiazide [Hctz -] 25 mg PO DAILY 12/21/14 Insulin Glargine,Hum.rec.anlog [Lantus Solostar PEN -] 50 units SQ HS 12/21/14 Levothyroxine [Synthroid -] 112 mcg PO DAILY 12/21/14 Ranolazine [Ranexa] 500 mg PO BID 12/21/14 Insulin Lispro [Humalog] 100 unit SQ ASDIR 04/12/16 Losartan Potassium [Cozaar] 100 mg PO DAILY 04/12/16 Tramadol HCl [Ultram -] 50 mg PO Q8H PRN #0 tablet MDD 3 04/16/16 Metformin HCl 500 mg PO BID 11/26/16 Simvastatin [Zocor] 80 mg PO HS 11/26/16 Xanax 1 mg PO DAILY 11/26/16 Review of Systems - Review of Systems Comments:: 11/26/16 16:01 " GENERAL/CONSTITUTIONAL: No fever or chills. No weakness. HEAD, EYES, EARS, NOSE AND THROAT: No change in vision. No ear pain or discharge. No sore throat. CARDIOVASCULAR: + chest tightness. No shortness of breath. RESPIRATORY: No cough, wheezing, or hemoptysis. GASTROINTESTINAL: No nausea, vomiting, diarrhea or constipation. GENITOURINARY: No dysuria, frequency, or change in urination. MUSCULOSKELETAL: No joint or muscle swelling or pain. No neck or back pain. SKIN: No rash NEUROLOGIC: No headache, vertigo, loss of consciousness, or change in strength/ sensation. ENDOCRINE: No increased thirst. No abnormal weight change. HEMATOLOGIC/LYMPHATIC: No anemia, easy bleeding, or history of blood clots. ALLERGIC/IMMUNOLOGIC: No hives or skin allergy. " <Rikki Stone - Last Filed: 11/26/16 18:01> *Physical Exam - Vital Signs Last Vital Signs Temp Pulse Resp BP Pulse Ox 98 F 90 18 160/90 100 11/26/16 12:12 11/26/16 12:12 11/26/16 12:12 11/26/16 12:12 11/26/16 12:12 <Jillian Schaeffer - Last Filed: 11/26/16 17:48> - Vital Signs Last Vital Signs Temp Pulse Resp BP Pulse Ox 98 F 90 18 160/90 100 11/26/16 12:12 11/26/16 12:12 11/26/16 12:12 11/26/16 12:12 11/26/16 12:12 - Physical Exam Comments: 11/26/16 16:02 "GENERAL: Awake, alert, and fully oriented, in no acute distress HEAD: No signs of trauma EYES: PERRLA, EOMI, sclera anicteric, conjunctiva clear ENT: Auricles normal inspection, hearing grossly normal, nares patent, oropharynx clear without exudates. Moist mucosa NECK: Normal ROM, supple, no lymphadenopathy, JVD, or masses LUNGS: Breath sounds equal, clear to auscultation bilaterally. No wheezes, and no crackles HEART: Regular rate and rhythm, normal S1 and S2, no murmurs, rubs or gallops ABDOMEN: Soft, nontender, normoactive bowel sounds. No guarding, no rebound. No masses EXTREMITIES: Normal range of motion, no edema. No clubbing or cyanosis. No cords, erythema, or tenderness NEUROLOGICAL: Cranial nerves II through XII grossly intact. Normal speech, normal gait SKIN: Warm, Dry, normal turgor, no rashes or lesions noted" <Rikki Stone - Last Filed: 11/26/16 18:01> Heart Score/ECG Review - History History: Highly suspicious - Electrocardiogram EKG: Non specific repolarization disturbance - Age Age: >/= 65 - Risk Factors Risk Factors Heart Score: Yes Hx Hypercholesterolemia, Yes Hx Hypertension, Yes Hx Diabetes, Yes Hx Obesity Based on the list above the patient has:: >/=3 risk factors or Hx atherosclerotic disease - Troponin Troponin: </= normal limit - Score Heart Score - Total: 7 - ECG Impressions Comment:: 11/26/16 16:02 NSR, no MARY/STDs, lateral TWIs not seen on prior EKG, intervals wnl <Rikki Stone - Last Filed: 11/26/16 18:01> ED Treatment Course - LABORATORY CBC & Chemistry Diagram: 11/26/16 13:57 11/26/16 13:57 - ADDITIONAL ORDERS Additional order review: Laboratory Results 11/26/16 11/26/16 11/26/16 13:57 13:57 13:57 INR 0.99 PTT (Actin FS) 34.1 Sodium Cancelled 141 Potassium Cancelled 4.0 Chloride Cancelled 107 Carbon Dioxide Cancelled 27 Anion Gap Cancelled 7 L BUN Cancelled 10 D Creatinine Cancelled 0.7 Creat Clearance w eGFR Cancelled > 60 Random Glucose Cancelled 172 H D Calcium Cancelled 9.6 Total Bilirubin Cancelled 0.6 AST Cancelled 11 L D ALT Cancelled 14 Alkaline Phosphatase Cancelled 94 Creatine Kinase 108 Troponin I 0.03 B-Natriuretic Peptide 80.76 Total Protein Cancelled 7.2 Albumin Cancelled 3.5 11/26/16 13:57 RBC 4.86 MCV 92.8 MCHC 33.5 RDW 13.7 MPV 10.7 Neutrophils % 69.0 Lymphocytes % 23.0 Monocytes % 5.5 Eosinophils % 1.2 Basophils % 1.3 - Medications Given in the ED: ED Medications Discontinued Medications Generic Name Dose Route Start Last Admin Trade Name Macey PRN Reason Stop Dose Admin Acetaminophen 1,000 mg 11/26/16 14:11 11/26/16 15:29 Tylenol - PO 11/26/16 14:12 1,000 mg ONCE ONE Administration <Jillian Schaeffer - Last Filed: 11/26/16 17:48> - LABORATORY CBC & Chemistry Diagram: 11/26/16 13:57 11/26/16 13:57 - ADDITIONAL ORDERS Additional order review: Laboratory Results 11/26/16 11/26/16 11/26/16 13:57 13:57 13:57 INR 0.99 PTT (Actin FS) 34.1 Sodium Cancelled 141 Potassium Cancelled 4.0 Chloride Cancelled 107 Carbon Dioxide Cancelled 27 Anion Gap Cancelled 7 L BUN Cancelled 10 D Creatinine Cancelled 0.7 Creat Clearance w eGFR Cancelled > 60 Random Glucose Cancelled 172 H D Calcium Cancelled 9.6 Total Bilirubin Cancelled 0.6 AST Cancelled 11 L D ALT Cancelled 14 Alkaline Phosphatase Cancelled 94 Creatine Kinase 108 Troponin I 0.03 B-Natriuretic Peptide 80.76 Total Protein Cancelled 7.2 Albumin Cancelled 3.5 11/26/16 13:57 RBC 4.86 MCV 92.8 MCHC 33.5 RDW 13.7 MPV 10.7 Neutrophils % 69.0 Lymphocytes % 23.0 Monocytes % 5.5 Eosinophils % 1.2 Basophils % 1.3 - RADIOLOGY Radiology Studies Ordered: Category Date Time Status CHEST PA & LAT [RAD] Stat Radiology 11/26/16 14:03 Completed - Medications Given in the ED: ED Medications Discontinued Medications Generic Name Dose Route Start Last Admin Trade Name Freq PRN Reason Stop Dose Admin Acetaminophen 1,000 mg 11/26/16 14:11 11/26/16 15:29 Tylenol - PO 11/26/16 14:12 1,000 mg ONCE ONE Administration <Rikki Stone - Last Filed: 11/26/16 18:01> Medical Decision Making - Medical Decision Making 11/26/16 16:19 Dr. Pollock paged via phone answering service at 3:56 PM Awaiting call back. Dr. Pollock paged via phone answering service at 4:18 PM Awaiting call back. Dr. Pollock responded to the page and the patients case was discussed at 4:[address] Lopez paged via phone answering service @4:33 PM Noted he was in house Paged Dr. Lopez overhead 4:34 PM. Awaiting call back. Paged Dr. Lopez overhead 4:52 PM. Awaiting call back. Paged Dr. Lopez overhead 5:08 PM. Awaiting call back. Paged Dr. Lopez via phone answering service at 5:16 PM Awaiting call back. Dr. Lopez responded to the page and the patient case was discussed at 5: 48 PM <Jillian Schaeffer - Last Filed: 11/26/16 17:48> - Medical Decision Making 11/26/16 16:02 66 F with chest pressure consistent with pain she had prior to previous stents, concerning for ACS. Pt with new TWIs in lateral leads. Pt with otherwise normal vitals. No PE risk factors other than age. No infectious symptoms such as cough or fever. - Labs, serial trops - CXR - Admit 11/26/16 17:[address] Lopez, who will notify interventionalist for possible transfer <Rikki Stone - Last Filed: 11/26/16 18:01> *DC/Admit/Observation/Transfer <Jillian Schaeffer - Last Filed: 11/26/16 17:48> - Discharge Dispostion Admit: Yes <Rikki Stone - Last Filed: 11/26/16 18:01> Diagnosis at time of Disposition: Chest pain - Referrals Referrals: Nestor Chang MD [Primary Care Provider] -
[2016-11-26] MEDS ORDERED: ENOXAPARIN NA (PORCINE) 100 MG/1 ML DISP.SYRIN SQ ONE ×2 (18:01→18:59)
--- NOTE | 2016-11-26 18:12 | PN ---
Progress Note (short form) - Note Progress Note: Called by ER re Ms. Chapa for Unstable Angina. Case reviewed w/ ER attending and RN. Ms. Chapa known to me from office for last 2 years, PMH HTN and CAD with multiple prior PCI. Now complaining of her usual anginal sx and new TWI on ECG. Also c/o headache x 2 weeks with occasional elevated BP at home. Vitals, Labs and CXR reviewed. As per ER attending, strong concern for Unstable Angina; little clinical concern for aortic dissection or PE. REC: 1. Repeat cardiac enzymes 2. Stat Head CT 3. Begin AC after CT. 4. Plan for transfer to [facility] for cath within next 24 hours; she is known to Dr. Bernardo Perry there who has accepted her for transfer. He performed her last coronary intervention. Spoke with admitting MD, Dr. Phill haines above plan.
--- NOTE | 2016-11-26 18:53 | EKG ---
Test Reason : Blood Pressure : / mmHG Vent. Rate : 092 BPM Atrial Rate : 092 BPM P-R Int : 162 ms QRS Dur : 096 ms QT Int : 352 ms P-R-T Axes : 049 004 040 degrees QTc Int : 435 ms NORMAL SINUS RHYTHM POSSIBLE LEFT ATRIAL ENLARGEMENT INCOMPLETE RIGHT BUNDLE BRANCH BLOCK NONSPECIFIC T WAVE ABNORMALITY ABNORMAL ECG WHEN COMPARED WITH ECG OF 12-APR-2016 11:11, NO SIGNIFICANT CHANGE WAS FOUND Confirmed by PRESTON DEGROOT, PEPE ([id number]) on 11/26/2016 6:53:17 PM Referred By: Confirmed By:PEPE JOHNSTON MD
[2016-11-26 20:19] LABS: TROPONIN I 0.03 ng/ml (0.00-0.05)
[2016-11-26] MEDS ORDERED: METOCLOPRAMIDE HCL INJECTION 10 MG/2 ML VIAL ONE (21:44)
[2016-11-26] MEDS ORDERED: METOCLOPRAMIDE HCL INJECTION 10 MG/2 ML VIAL IVPB ONE (22:42)
[2016-11-27] MEDS ORDERED: ALPRAZolam 2 MG TABLET PO PRN (00:34)
[2016-11-27] MEDS ORDERED: HEPARIN NA (PORCINE) 5,000 UNITS/ML 1ML VIAL IVPUSH PRN ×2 (00:39)
[2016-11-27] MEDS ORDERED: HEPARIN - 25,000 UNIT in SODIUM CHLORIDE 495 ML IV SCH (00:45)
[2016-11-27] MEDS ORDERED: ASPIRIN COATED 81 MG TABLET.EC PO SCH (00:45)
[2016-11-27 02:00] VITALS: BMI 38.1
[2016-11-27] MEDS ORDERED: HEPARIN INFUSION - 500 ML IVPB ONE (06:53)
[2016-11-27] MEDS ORDERED: LEVOTHYROXINE NA 112 MCG TABLET (FP) PO SCH (07:00)
[2016-11-27] MEDS ORDERED: metFORMIN HCL 500 MG TABLET (FP) PO SCH (07:00)
[2016-11-27] MEDS ORDERED: INSULIN SLIDING SCALE (NOVOLOG) 1 VIAL SQ SCH (07:00)
[2016-11-27 08:18] LABS: MCH 30.9 pg (25.7-33.7); MCHC 32.9 g/dl (32.0-36.0); MEAN CELL VOLUME 93.9 fl (80-96); MEAN PLT VOLUME 10.8 fl (7.5-11.1); NEUTROPHILS 61.7 % (42.8-82.8); PLATELET COUNT 242 K/MM3 (134-434); RDW 13.7 % (11.6-15.6); WHITE BLOOD COUNT 9.7 K/mm3 (4.0-10.0)
--- NOTE | 2016-11-27 08:24 | PN ---
Progress Note (short form) - Note Progress Note: IMP: Known CAD s/p PCI Unstable angina Chronic headaches- doubt acute CVA REC: Continue AC Plan to transfer to [facility] for Neuro eval and cath to follow
--- NOTE | 2016-11-27 08:55 | CONS ---
DATE OF CONSULTATION: 11/27/2016 REQUESTING PHYSICIAN: Randa Pollock MD REASON FOR CONSULTATION: Consultation requested by Dr. Pollock for unstable angina. Briefly, the patient is 66 years old, my office patient of several years, with coronary disease status post previous PCI. She also has chronic hypertension and presented to the emergency room with substernal chest pressure radiating to the left shoulder for several weeks. It has been occurring more frequently with exertion and yesterday occurred at rest. She describes it as very similar to her previous anginal episodes. EKG showed what appears to be new T-wave inversions laterally. She was started on anticoagulation for unstable angina. She also reported to the nurse that she has been having headaches for the last 2 months for which a CT scan was performed. The CT scan showed several small, probably chronic infarcts, although Radiology read them as possibly subacute. She has been chest pain-free overnight with no shortness of breath, 2 sets of cardiac enzymes negative, and telemetry showing sinus rhythm. PAST MEDICAL HISTORY: As outlined above and includes coronary disease, hyperlipidemia, diabetes, hypertension, and gastroesophageal reflux disease as well as hypothyroidism. ALLERGIES: None. MEDICATIONS: Medications at home include Xanax p.r.n., aspirin 81 daily, Lipitor 20 at bedtime, Plavix 75 daily, hydrochlorothiazide 25 daily, insulin, Synthroid 112 mcg daily, Cozaar 100 mg daily, metformin 500 mg b.i.d., Protonix 40 daily, and Ranexa 500 b.i.d. FAMILY HISTORY: Noncontributory. SOCIAL HISTORY: She is an active smoker. PHYSICAL EXAMINATION: Vital Signs: Afebrile, 98.3. Blood pressure 153/86, O2 saturation 99 on room air. HEENT: Anicteric. Neck: No bruits. Heart: S1, S2 regular. No murmurs. Chest: Clear. Abdomen: Soft, nontender. Extremities: No edema. EKG showed normal sinus rhythm with T-wave inversions in V4-V6 which appear to be new. LABORATORY: White count 9.7. Hematocrit is 47, platelets 242. PTT 34. Sodium 140, potassium 4, creatinine 0.7. AST, ALT normal. CK 108, 81. Troponin 0.03, 0.03. Chest x-ray showed no pneumonia, atelectasis, or effusion. CT head was performed and is as above. IMPRESSION: A 66-year-old female with coronary disease, diabetes, presenting with symptoms consistent with unstable angina, and chronic headaches, doubt cerebrovascular accident acute or subacute. PLAN: 1. Continue anticoagulation. 2. Plan for transfer to [facility] for neuro evaluation and probable subsequent cardiac catheterization once neurologically clear. Thanks for the consultation. CARLEE SAEZ M.D. [id number]
[2016-11-27 09:06] LABS: ALBUMIN 3.6 g/dl (3.4-5.0); ALK PHOS 102 U/L (45-117); ANION GAP 9 (8-16); BILIRUBIN,TOTAL 0.5 mg/dL (0.2-1.0); CALCIUM 9.9 mg/dL (8.5-10.1); CO2 28 mmol/L (21-32); CREATININE 0.9 mg/dL (0.55-1.02); GLUCOSE,RANDOM 242 mg/dL (74-106); SGOT/AST 13 U/L (15-37); SGPT/ALT 14 U/L (12-78); TOT PROT 7.6 g/dl (6.4-8.2)
[2016-11-27] MEDS ORDERED: ACETAMINOPHEN 325 MG TABLET (FP) ONE (09:39)
[2016-11-27] MEDS ORDERED: RANOLAZINE E.R. 500 MG TABLET (FP) PO SCH (10:00)
[2016-11-27] MEDS ORDERED: LOSARTAN POTASSIUM 50 MG TABLET (FP) PO SCH (10:00)
[2016-11-27] MEDS ORDERED: HYDROCHLOROTHIAZIDE 25 MG TABLET (FP) PO SCH (10:00)
[2016-11-27] MEDS ORDERED: CLOPIDOGREL BISULFATE 75 MG TABLET (FP) PO SCH (10:00)
[2016-11-27] MEDS ORDERED: PANTOPRAZOLE 40 MG TABLET (FP) PO SCH (10:00)
[2016-11-27] MEDS ORDERED: KETOROLAC TROMETHAMINE 30 MG/1 ML VIAL IVPB PRN (11:47)
[2016-11-27 12:08] VITALS: BP 135/77; PULSE 87; TEMP 98.9
--- NOTE | 2016-11-27 18:17 | HP ---
Admitting History and Physical - Past Medical History Cardiovascular: Yes: HTN, Hyperlipdemia Pulmonary: Yes: Asthma Endocrine: Yes: Diabetes Mellitus - Smoking History Smoking history: Current some day smoker Have you smoked in the past 12 months: Yes Aproximately how many cigarettes per day: 3 If you are a former smoker, when did you quit?: 5 - Alcohol/Substance Use Hx Alcohol Use: No Home Medications - Allergies Allergies/Adverse Reactions: Allergies Allergy/AdvReac Type Severity Reaction Status Date / Time No Known Drug Allergies Allergy Verified 11/26/16 12:15 - Home Medications Home Medications: Ambulatory Orders Albuterol Sulfate Inhaler - [Ventolin HFA Inhaler -] 2 inh PO Q6H PRN 12/21/14 Atorvastatin Ca [Lipitor] 20 mg PO DAILY 12/21/14 Clopidogrel Bisulfate [Plavix -] 75 mg PO DAILY 12/21/14 Hydrochlorothiazide [Hctz -] 25 mg PO DAILY 12/21/14 Insulin Glargine,Hum.rec.anlog [Lantus Solostar PEN -] 50 units SQ HS 12/21/14 Levothyroxine [Synthroid -] 112 mcg PO DAILY 12/21/14 Ranolazine [Ranexa] 500 mg PO BID 12/21/14 Insulin Lispro [Humalog] 100 unit SQ ASDIR 04/12/16 Losartan Potassium [Cozaar] 100 mg PO DAILY 04/12/16 Tramadol HCl [Ultram -] 50 mg PO Q8H PRN #0 tablet MDD 3 04/16/16 Metformin HCl 500 mg PO BID 11/26/16 Simvastatin [Zocor] 80 mg PO HS 11/26/16 Xanax 1 mg PO DAILY 11/26/16 Physical Examination Vital Signs: Vital Signs Temperature 98.9 F 11/27/16 09:00 Pulse Rate 87 11/27/16 09:00 Respiratory Rate 20 11/27/16 10:00 Blood Pressure 135/77 11/27/16 09:00 O2 Sat by Pulse Oximetry (%) 95 11/27/16 10:00 Labs: CBC, BMP 11/27/16 06:05 11/27/16 06:05
[2016-11-27] MEDS ORDERED: ATORVASTATIN CA 20 MG TABLET (FP) PO SCH (22:00)
[2016-11-27] MEDS ORDERED: PATIENT'S OWN MEDICATION (NON-FORMULARY) (Simvastatin [Zocor] 80 MG) PO SCH (22:00)
[2016-11-27] MEDS ORDERED: INSULIN DETEMIR 100 UNITS/ML MDV SQ SCH (22:00)
== END 2016-11-27 13:14 | disposition short-term general hospital (02) | DRG 303 ==
LOC: JER 12:07 → JERBED 17:16 → J4W 11-27 00:05 → OBSVTOIN 11-27 00:36
PROVIDERS: ADMIT Internal Medicine; ATTEND Internal Medicine
DX: I25.110 Atherosclerotic heart disease of native coronary artery with unstable angina pectoris (principal); Z98.61 Coronary angioplasty status; R51 Headache; E78.5 Hyperlipidemia, unspecified; E03.9 Hypothyroidism, unspecified; K21.9 Gastro-esophageal reflux disease without esophagitis; E11.9 Type 2 diabetes mellitus without complications; Z72.0 Tobacco use; I11.0 Hypertensive heart disease with heart failure; I50.9 Heart failure, unspecified
CPT/HCPCS: 36415; 70450-TC; 71020-TC; 80053; 83880; 84484; 85025; 85610; 85730; 93005; 93010; 99284-25; G0378; J1644

== ENCOUNTER 2017-01-30 08:03 | Emergency (ER) | payer OTHER ==
[2017-01-30 08:08] VITALS: BP 155/71; PULSE 92; TEMP 97.6; BMI 38.5
--- NOTE | 2017-01-30 08:25 | PDOC ---
History of Present Illness - General Chief Complaint: Blood Sugar Problem Stated Complaint: BLOOD SUGAR COMPLICATIONS Time Seen by Provider: 01/30/17 08:13 History Source: Patient - History of Present Illness Timing/Duration: other Associated Symptoms: denies: chest pain, fever/chills, headaches, malaise, nausea/vomiting, shortness of breath, weakness Past History - Past Medical History Allergies/Adverse Reactions: Allergies Allergy/AdvReac Type Severity Reaction Status Date / Time No Known Drug Allergies Allergy Verified 01/30/17 08:08 Home Medications: Ambulatory Orders Albuterol Sulfate Inhaler - [Ventolin HFA Inhaler -] 2 inh PO Q6H PRN 12/21/14 Atorvastatin Ca [Lipitor] 20 mg PO DAILY 12/21/14 Clopidogrel Bisulfate [Plavix -] 75 mg PO DAILY 12/21/14 Hydrochlorothiazide [Hctz -] 25 mg PO DAILY 12/21/14 Insulin Glargine,Hum.rec.anlog [Lantus Solostar PEN -] 50 units SQ HS 12/21/14 Levothyroxine [Synthroid -] 112 mcg PO DAILY 12/21/14 Ranolazine [Ranexa] 500 mg PO BID 12/21/14 Insulin Lispro [Humalog] 100 unit SQ ASDIR 04/12/16 Losartan Potassium [Cozaar] 100 mg PO DAILY 04/12/16 Tramadol HCl [Ultram -] 50 mg PO Q8H PRN #0 tablet MDD 3 04/16/16 Metformin HCl 500 mg PO BID 11/26/16 Simvastatin [Zocor] 80 mg PO HS 11/26/16 Xanax 1 mg PO DAILY 11/26/16 Anemia: No Asthma: No Cancer: No Cardiac Disorders: Yes CVA: No COPD: No CHF: Yes (NO MEDS) Dementia: No Diabetes: Yes GI Disorders: Yes Disorders: Yes (KIDNEY STONES) HTN: Yes Hypercholesterolemia: Yes Liver Disease: No Seizures: No Thyroid Disease: Yes - Surgical History Abdominal Surgery: Yes (HERNIA SX A BABY) Appendectomy: No Cardiac Surgery: Yes (Multiple stents) Cholecystectomy: No Lung Surgery: No Neurologic Surgery: No Orthopedic Surgery: No - Immunization History Immunization Up to Date: Yes - Suicide/Smoking/Psychosocial Hx Smoking History: Current every day smoker Have you smoked in the past 12 months: Yes Number of Cigarettes Smoked Daily: 3 If you are a former smoker, when did you quit?: 5 Cigars Per Day: 3 Information on smoking cessation initiated: No 'Breaking Loose' booklet given: 04/12/16 Hx Alcohol Use: No Drug/Substance Use Hx: No Substance Use Type: None Hx Substance Use Treatment: No Review of Systems - Review of Systems Constitutional: No: Chills, Fever, Malaise, Weakness HEENTM: No: Blurred Vision Respiratory: No: Shortness of Breath Cardiac (ROS): No: Chest Pain, Lightheadedness, Palpitations ABD/GI: No: Constipated, Diarrhea, Nausea, Vomiting, Abdominal cramping : No: Dysuria *Physical Exam - Vital Signs Last Vital Signs Temp Pulse Resp BP Pulse Ox 97.6 F 92 H 20 155/71 99 01/30/17 08:05 01/30/17 08:05 01/30/17 08:05 01/30/17 08:05 01/30/17 08:05 - Physical Exam General Appearance: Yes: Appropriately Dressed. No: Apparent Distress HEENT: positive: Normal Voice Neck: positive: Supple Respiratory/Chest: positive: Lungs Clear, Normal Breath Sounds. negative: Respiratory Distress Cardiovascular: positive: Regular Rate, S1, S2 Gastrointestinal/Abdominal: positive: Soft. negative: Tender Integumentary: positive: Dry, Warm Neurologic: positive: Fully Oriented, Alert, Normal Mood/Affect Medical Decision Making - Medical Decision Making 01/30/17 08:22 66-year-old female, history of hypertension, hyperlipidemia, CAD with stents, hypothyroid, insulin-dependent diabetes, here requesting fingerstick. Patient states she was upstairs visiting daughter who is in surgery and states she has not taken her a.m. insulin, but wanted to see what her blood sugar was before she took her meds and decided to come to the ED for finger stick as she left her blood glucose machine at home. Denies any medical complaints at this time. Pt well-appearing and stable with unremarkable exam. Finger stick 160 in ED, no further intervention needed. Patient discharged with instructions to continue taking her insulin as directed *DC/Admit/Observation/Transfer Diagnosis at time of Disposition: Elevated blood sugar - Discharge Dispostion Disposition: HOME Condition at time of disposition: Good - Patient Instructions Additional Instructions: Continue to take you insulin as directed
== END 2017-01-30 08:37 | disposition home or self-care (01) ==
LOC: JER 08:03
DX: E13.65 Other specified diabetes mellitus with hyperglycemia (principal); I10 Essential (primary) hypertension; E78.5 Hyperlipidemia, unspecified; I25.10 Atherosclerotic heart disease of native coronary artery without angina pectoris; Z95.5 Presence of coronary angioplasty implant and graft; E03.9 Hypothyroidism, unspecified; Z79.4 Long term (current) use of insulin; F17.210 Nicotine dependence, cigarettes, uncomplicated
CPT/HCPCS: 99281-25

== ENCOUNTER 2017-04-16 03:18 | Emergency (ER) | payer OTHER ==
[2017-04-16 05:47] VITALS: BMI 37.3
--- NOTE | 2017-04-16 05:52 | PDOC ---
Attending Attestation - HPI HPI: 04/16/17 06:06 Patient is a 66F, with PMHx of HTN, HLD, CHF, CAD, Hypothyroidism, GERD, DM, who presents to the ED complaining of 3 days (Saturday) of left sided periorbital and cheek numbness and tingling. She states she began experiencing numbness and tingling in her lips and face while drinking coffee Saturday afternoon. She also endorses mild left sided unilateral headache. She states she began experiencing chest pain around 1am this morning, and non-radiating chest pressure.She denies sob, no changes in vision, no numbness or tingling elsewhere. Denies changes in medications or diet. PCP: Nestor Chang Social Hx: tobacco use <Olga Prieto - Last Filed: 04/16/17 06:05> - Resident Resident Name: Froilan Joiner - ED Attending Attestation I have performed the following: I have examined & evaluated the patient, The case was reviewed & discussed with the resident, I agree w/resident's findings & plan, Exceptions are as noted - Physicial Exam PE: 04/16/17 06:13 Physical Exam General Appearance: Yes: Appropriately Dressed. No: Apparent Distress, Intoxicated HEENT: positive: EOMI, VIGNESH, Normal ENT Inspection, Normal Voice, TMs Normal, Pharynx Normal. negative: Pale Conjunctivae, Photophobia, Scleral Icterus (R), Scleral Icterus (L) Neck: positive: Trachea midline, Normal Thyroid, Supple. negative: Tender, Rigid, Carotid bruit, Stridor, Lymphadenopathy (R), Lymphadenopathy (L), Thyromegaly Respiratory/Chest: positive: Lungs Clear, Normal Breath Sounds. negative: Chest Tender, Respiratory Distress, Accessory Muscle Use, Labored Respiration, RES, Crackles, Rales, Rhonchi, Stridor, Wheezing, Dullness Cardiovascular: positive: Regular Rhythm, Regular Rate, S1, S2. negative: Edema , JVD, Murmur, Bradycardia, Tachycardia Vascular Pulses: Dorsalis-Pedis (R): 2+, Doralis-Pedis (L): 2+ Gastrointestinal/Abdominal: positive: Normal Bowel Sounds, Flat, Soft. negative : Tender, Organomegaly, Pulsatile Mass, Increased Bowel Sounds, Decreased BS, Distended, Guarding, Rebound, Hernia, Hepatomegaly, Spleenomegaly Lymphatic: negative: Adenopathy, Tenderness Musculoskeletal: positive: Normal Inspection. negative: CVA Tenderness, Decreased Range of Motion Extremity: positive: Normal Capillary Refill, Normal Inspection, Normal Range of Motion, Pelvis Stable. negative: Tender, Pedal Edema, Swelling, Erythema Integumentary: positive: Normal Color, Dry, Warm. negative: Cyanotic, Erythema , Jaundice, Rash Neurologic: positive: yield engineer II-XII NML intact, Fully Oriented, Alert, Normal Mood/ Affect, Motor Strength 5/5. negative: EOM Palsy, Facial Droop, Sensory Deficit - Medical Decision Making 04/16/17 19:19 Pt treated and released <Moreno Cabrera - Last Filed: 04/16/17 19:19>
[2017-04-16 06:20] LABS: EOS % 1.6 % (0-4.5); HEMATOCRIT 40.5 % (32.4-45.2); HEMOGLOBIN 13.3 GM/dL (10.7-15.3); LYMPH % 18.7 % (8-40); MCH 30.1 pg (25.7-33.7); MCHC 32.7 g/dl (32.0-36.0); MEAN CELL VOLUME 91.9 fl (80-96); MEAN PLT VOLUME 10.2 fl (7.5-11.1); MONO % 6.2 % (3.8-10.2); NEUT % 72.5 % (42.8-82.8); PLATELET COUNT 270 K/MM3 (134-434); RBC 4.41 M/mm3 (3.60-5.2); RDW 13.7 % (11.6-15.6); WHITE BLOOD COUNT 14.9 K/mm3 (4.0-10.0)
--- NOTE | 2017-04-16 06:32 | PDOC ---
History of Present Illness - General Chief Complaint: Head/Neck problem Stated Complaint: NUMBNESS Time Seen by Provider: 04/16/17 04:59 History Source: Patient Exam Limitations: No Limitations - History of Present Illness Initial Comments: 04/16/17 06:35 The patient is a 66F with a PMH of HTN, HLD, CHF, CAD, Hypothyroidism, GERD, DM who presents to the ED with complaints of numbness around her mouth and L cheek. The patient states that Saturday evening, she began to feel a "weird" sensation around her mouth. This sensation has been constant and feels like numbness and tingling. It is only present around her lips and L cheek. She denies any swelling, new foods, new soaps/shampoos/lotions/perfumes. She denies any difficulty breathing or swallowing. She states that she has a L sided headache, described as a dull pressure since last night and retrosternal, nonradiating chest pressure 4/10 that started at 0100 this morning. Past History - Past Medical History Allergies/Adverse Reactions: Allergies Allergy/AdvReac Type Severity Reaction Status Date / Time No Known Drug Allergies Allergy Verified 04/16/17 04:18 Home Medications: Ambulatory Orders Albuterol Sulfate Inhaler - [Ventolin HFA Inhaler -] 2 inh PO Q6H PRN 12/21/14 Atorvastatin Ca [Lipitor] 20 mg PO DAILY 12/21/14 Clopidogrel Bisulfate [Plavix -] 75 mg PO DAILY 12/21/14 Hydrochlorothiazide [Hctz -] 25 mg PO DAILY 12/21/14 Insulin Glargine,Hum.rec.anlog [Lantus Solostar PEN -] 50 units SQ HS 12/21/14 Levothyroxine [Synthroid -] 112 mcg PO DAILY 12/21/14 Ranolazine [Ranexa] 500 mg PO BID 12/21/14 Insulin Lispro [Humalog] 100 unit SQ ASDIR 04/12/16 Losartan Potassium [Cozaar] 100 mg PO DAILY 04/12/16 Tramadol HCl [Ultram -] 50 mg PO Q8H PRN #0 tablet MDD 3 04/16/16 Metformin HCl 500 mg PO BID 11/26/16 Simvastatin [Zocor] 80 mg PO HS 11/26/16 Xanax 1 mg PO DAILY 11/26/16 Anemia: No Asthma: No Cancer: No Cardiac Disorders: Yes CVA: No COPD: No CHF: Yes (NO MEDS) Dementia: No Diabetes: Yes GI Disorders: Yes Disorders: Yes (KIDNEY STONES) HTN: Yes Hypercholesterolemia: Yes Liver Disease: No Seizures: No Thyroid Disease: Yes - Surgical History Abdominal Surgery: Yes (HERNIA SX A BABY) Appendectomy: No Cardiac Surgery: Yes (Multiple stents) Cholecystectomy: No Lung Surgery: No Neurologic Surgery: No Orthopedic Surgery: No - Immunization History Immunization Up to Date: Yes - Suicide/Smoking/Psychosocial Hx Smoking History: Current every day smoker Have you smoked in the past 12 months: Yes Number of Cigarettes Smoked Daily: 3 If you are a former smoker, when did you quit?: 5 Cigars Per Day: 3 Information on smoking cessation initiated: No 'Breaking Loose' booklet given: 04/12/16 Hx Alcohol Use: No Drug/Substance Use Hx: No Substance Use Type: None Hx Substance Use Treatment: No Review of Systems - Review of Systems Able to Perform ROS?: Yes Comments:: 04/16/17 06:43 GENERAL/CONSTITUTIONAL: No fever or chills. No weakness. HEAD, EYES, EARS, NOSE AND THROAT: No change in vision. No ear pain or discharge. No sore throat. GASTROINTESTINAL: No nausea, vomiting, diarrhea, constipation, or abdominal pain. GENITOURINARY: No dysuria, frequency, hematuria, or change in urination. CARDIOVASCULAR: Positive for chest pressure. No chest pain, palpitations, or lightheadedness. RESPIRATORY: No cough, wheezing, shortness of breath, or hemoptysis. MUSCULOSKELETAL: No joint or muscle swelling or pain. No neck or back pain. SKIN: No rash or lesions. NEUROLOGIC: Positive for numbness and tingling around the lips and L cheek; positive for headache. ENDOCRINE: No increased thirst. No abnormal weight change. HEMATOLOGIC/LYMPHATIC: No anemia, easy bleeding, or history of blood clots. ALLERGIC/IMMUNOLOGIC: No hives or skin allergy. Is the patient limited Turkish proficient: No *Physical Exam - Vital Signs Last Vital Signs Temp Pulse Resp BP Pulse Ox 98.4 F 78 18 147/70 98 04/16/17 05:41 04/16/17 05:41 04/16/17 05:41 04/16/17 05:41 04/16/17 05:41 - Physical Exam Comments: 04/16/17 06:44 GENERAL: Well developed, well nourished. Awake and alert. No acute distress. HEENT: Normocephalic, atraumatic. Hearing grossly normal. Moist mucous membranes. PERRLA, EOMI. No conjunctival pallor. Sclera are non-icteric. Oropharynx is clear. NECK: Supple. Full ROM. No JVD. CARDIOVASCULAR: Regular rate and rhythm. No murmurs, rubs, or gallops. PULMONARY: No evidence of respiratory distress. Lungs clear to auscultation bilaterally. No wheezing, rales or rhonchi. ABDOMINAL: Soft. Non-tender. Non-distended. No rebound or guarding. GENITOURINARY: No CVA tenderness bilaterally. MUSCULOSKELETAL: Normal range of motion at all joints. No bony deformities or tenderness. EXTREMITIES: No cyanosis. No clubbing. No edema. No calf tenderness. SKIN: Warm and dry. Normal capillary refill. No rashes. No jaundice. NEUROLOGICAL: Alert, awake, appropriate. Cranial nerves 2-12 intact. Different sensations in V2 and V3 distribution of CNV on L side. No motor deficits in the in face, upper extremities and lower extremities. Finger to nose is normal b/l. Normal speech. Gait is normal without ataxia. PSYCHIATRIC: Cooperative. Good eye contact. Appropriate mood and affect. ED Treatment Course - LABORATORY CBC & Chemistry Diagram: 04/16/17 06:06 04/16/17 06:06 - RADIOLOGY Radiology Studies Ordered: Category Date Time Status HEAD CT WITHOUT CONTRAST [CT] Stat CT Scan 04/16/17 05:55 Ordered Medical Decision Making - Medical Decision Making 04/16/17 06:46 The patient is a 66F with an extensive PMH who presents to the ED with complaints of lip numbness and tingling as well as L cheek numbness and tingling. I have a concern for a TIA/CVA, however, due to her delayed presentation, she is not a code kohler. Pending labs and head CT. 04/16/17 06:55 CBC significant for WBC 14.9. CMP WNL. Pending imaging and disposition. *DC/Admit/Observation/Transfer - Referrals Referrals: Nestor Chang MD [Primary Care Provider] - - Patient Instructions - Post Discharge Activity
[2017-04-16 06:43] LABS: ALBUMIN 3.5 g/dl (3.4-5.0); ANION GAP 9 (8-16); BILIRUBIN,TOTAL 0.4 mg/dL (0.2-1.0); BLOOD UREA NITROGEN 15 mg/dL (7-18); CALCIUM 8.9 mg/dL (8.5-10.1); CHLORIDE 112 mmol/L (98-107); CO2 25 mmol/L (21-32); CREATININE 0.9 mg/dL (0.55-1.02); GLUCOSE,RANDOM 161 mg/dL (74-106); POTASSIUM 3.9 mmol/L (3.5-5.1); SGOT/AST 12 U/L (15-37); SGPT/ALT 18 U/L (12-78); SODIUM 146 mmol/L (136-145); TOT PROT 7.3 g/dl (6.4-8.2)
[2017-04-16 06:45] LABS: ALK PHOS 121 U/L (45-117)
--- NOTE | 2017-04-16 08:40 | PDOC ---
*Physical Exam - Vital Signs Last Vital Signs Temp Pulse Resp BP Pulse Ox 98.4 F 82 18 125/64 98 04/16/17 05:41 04/16/17 06:49 04/16/17 05:41 04/16/17 06:49 04/16/17 06:49 ED Treatment Course - LABORATORY CBC & Chemistry Diagram: 04/16/17 06:06 04/16/17 06:06 - ADDITIONAL ORDERS Additional order review: Laboratory Results 04/16/17 06:06 Sodium 146 H Potassium 3.9 Chloride 112 H Carbon Dioxide 25 Anion Gap 9 BUN 15 Creatinine 0.9 Creat Clearance w eGFR > 60 Random Glucose 161 H Calcium 8.9 Total Bilirubin 0.4 AST 12 L ALT 18 D Alkaline Phosphatase 121 H Creatine Kinase 131 Troponin I 0.02 Total Protein 7.3 Albumin 3.5 04/16/17 06:06 RBC 4.41 MCV 91.9 MCHC 32.7 RDW 13.7 MPV 10.2 Neutrophils % 72.5 Lymphocytes % 18.7 D Monocytes % 6.2 Eosinophils % 1.6 Basophils % 1.0 Medical Decision Making - Medical Decision Making 04/16/17 08:[address] Joiner. Patient is a 66yo F with PMHx of CAD, chronic CVAs, hypoThyroidism who presents with L sided tongue, lip, and cheek numbness that started 3 days ago. Small stroke is likely with patient's history. Calcium , glucose, O2, troponins are WNL. CT head shows chronic infarcts, but nothing acute. It is possible a small stroke is missed. Patient will benefit from MRI w / and w/o contrast as an outpatient. Arranged for MRI appointment this SaturdayApr 19 7:30AM and followup with PCP Dr. Nestor Chang for SaturdayApr 19 at 11 :30. TSH also pending to r/o thyroid abnormalities. If TSH is negative, will d/ c patient home for outpatient followups. *DC/Admit/Observation/Transfer Diagnosis at time of Disposition: Left facial numbness - Discharge Dispostion Disposition: HOME Condition at time of disposition: Stable - Referrals Referrals: Nestor Chang MD [Primary Care Provider] - (APPOINTMENT for April 19 11:30 AM ) - Patient Instructions Additional Instructions: You were in the Emergency Room because of L facial numbness. It is possible you had a small stroke that we cannot detect with a CT head scan. You are already optimized on the correct medications. We would like you to see your primary care doctor Dr. Nestor Chang this SaturdayApril 19 at 11:30 AM. We have also made an appointment for you to have an MRI with and without contrast this SaturdayApril 19 at 7:30AM. You must bring your cards for your cardiac stents to the MRI appointment. If you experience any chest pain, shortness of breath, facial droop, or if you feel the numbness spreading, please return to the ER - Post Discharge Activity
[2017-04-16 10:08] VITALS: BP 143/79; PULSE 90; TEMP 98.1
--- NOTE | 2017-04-16 10:20 | EKG ---
Test Reason : Blood Pressure : / mmHG Vent. Rate : 071 BPM Atrial Rate : 071 BPM P-R Int : 188 ms QRS Dur : 096 ms QT Int : 374 ms P-R-T Axes : 036 031 049 degrees QTc Int : 406 ms NORMAL SINUS RHYTHM INCOMPLETE RIGHT BUNDLE BRANCH BLOCK NONSPECIFIC T WAVE ABNORMALITY ABNORMAL ECG WHEN COMPARED WITH ECG OF 26-NOV-2016 12:23, NO SIGNIFICANT CHANGE WAS FOUND Confirmed by HELEN DEGROOT, KAYCEE ([id number]) on 04/16/2017 10:19:46 AM Referred By: Confirmed By:KAYCEE CERVANTES MD
== END 2017-04-16 10:08 | disposition home or self-care (01) ==
LOC: JER 03:18
DX: R20.0 Anesthesia of skin (principal); I25.10 Atherosclerotic heart disease of native coronary artery without angina pectoris; I11.0 Hypertensive heart disease with heart failure; Z95.5 Presence of coronary angioplasty implant and graft; E78.00 Pure hypercholesterolemia, unspecified; E11.9 Type 2 diabetes mellitus without complications; Z79.4 Long term (current) use of insulin; Z79.84 Long term (current) use of oral hypoglycemic drugs; E03.9 Hypothyroidism, unspecified; K21.9 Gastro-esophageal reflux disease without esophagitis
CPT/HCPCS: 36415; 70450-TC; 80053; 82550; 84443; 84484; 85025; 85651; 93005; 93010; 99283-25